=== PATIENT | female | born 1985 | race Two or more races ===

== ENCOUNTER 2019-05-23 12:53 | Emergency (ER) | payer OTHER ==
[~2019-05-23] VITALS: Ht 160 cm; Wt 55.8 kg
[2019-05-23] MEDS ORDERED: CLONAZEPAM1 MG (13:05)
[2019-05-23] MEDS ORDERED: CELEXA40 MG (13:05)
== END 2019-05-23 15:20 | disposition home or self-care (01) ==
LOC: ER 12:53
DX: N39.0 Urinary tract infection, site not specified (principal); R10.2 Pelvic and perineal pain